=== PATIENT | male | born 1985 | race Caucasian/White ===

== ENCOUNTER 2020-09-09 19:09 | Emergency (ER) | payer BC ==
[~2020-09-09] VITALS: Ht 170.2 cm; Wt 98.1 kg
[~2020-09-09 19:09] MED LIST: AUGM875T28 PO; FLAG500T PO; HYDR-3715 PO; IBUPOTC PO
[2020-09-09 20:55] VITALS: BP 127/61
== END 2020-09-09 20:57 | disposition home or self-care (01) ==
LOC: M ED 19:09
DX: T23.122A Burn of first degree of single left finger (nail) except thumb, initial encounter (principal); X12.XXXA Contact with other hot fluids, initial encounter; Y92.000 Kitchen of unspecified non-institutional (private) residence as the place of occurrence of the external cause; Y93.G3 Activity, cooking and baking; Y99.9 Unspecified external cause status; T31.0 Burns involving less than 10% of body surface; F17.200 Nicotine dependence, unspecified, uncomplicated

== ENCOUNTER → 2020-10-02 | Outpatient (CLI) | payer SELFPAY | LOC: M LABSMTC 11:14 | PROVIDERS: ATTEND Pediatrics | DX: Z20.828 Contact with and (suspected) exposure to other viral communicable diseases (principal) ==